=== PATIENT | female | born 1940 | race Caucasian/White ===

== ENCOUNTER 2016-09-07 16:01 | Emergency (ER) | payer MEDICARE ==
[~2016-09-07] VITALS: Ht 154.9 cm; Wt 61.0 kg
[~2016-09-07 16:01] MED LIST: ALBU.5I NEB; ASPI81CH CHEW; CALC1TAB55 PO; CITA10TA4 PO; Cefuroxime PO; DULO1CAP3 PO; FLUT1SPR22; IPRA17I INH; LORA1TAB12 PO; LYRI50CA PO; MIRA33504 PO; MOBI15TA PO; PRIL20CA9 PO; PROBCAP11 PO; RANI150C PO; RISP1TAB2 PO; ZITH250T PO
[2016-09-07 16:09] VITALS: BP 117/76; PULSE 82; RESP 24; TEMP 98.4; O2SAT 94
[2016-09-07] MEDS: RESP: ALBUTEROL 2.5 MG/IPRATROPIUM 0.5 MG NEB (SCH) INH (16:38)
[2016-09-07 16:40] VITALS: O2SAT 95
[2016-09-07] MEDS ORDERED: methylPREDNISolone SOD SUCC 125 MG/2 ML VIAL IVP ONE (16:45)
[2016-09-07] MEDS ORDERED: SODIUM CHLORIDE 0.9% FLUSH 10 ML FLUSH IVF PRN (16:45)
[2016-09-07 17:00] VITALS: O2SAT 93
[2016-09-07 18:15] VITALS: BP 125/73; PULSE 77; RESP 18; O2SAT 94
[2016-09-07 18:21] LABS: AUTOMATED NEUTROPHIL # 1.5 TH/MM3 (1.8-7.7); BASOPHIL % 0.6 % (0.0-2.0); EOSINOPHIL # 0.1 TH/MM3 (0-0.4); EOSINOPHIL % 2.6 % (0.0-4.0); HEMATOCRIT 40.1 % (35.0-46.0); HEMO FLAGS DIFF FINAL; LYMPH % 32.3 % (9.0-44.0); MEAN CELL VOLUME 93.6 FL (80.0-100.0); MEAN CORPUSCULAR HEMOGLOBIN 30.6 PG (27.0-34.0); MEAN CORPUSCULAR HGB CONC 32.7 % (32.0-36.0); NEUT % 52.5 % (16.0-70.0); PLATELET COUNT 174 TH/MM3 (150-450); RED BLOOD COUNT 4.28 MIL/MM3 (4.00-5.30); RED CELL DISTRIBUTION WIDTH 13.2 % (11.6-17.2)
[2016-09-07 18:33] LABS: CHLORIDE 108 MEQ/L (98-107); POTASSIUM 4.5 MEQ/L (3.5-5.1); SODIUM (NA) 142 MEQ/L (136-145)
[2016-09-07 18:37] LABS: APTT (PATIENT) 26.3 SEC (24.3-30.1); PROTHROMBIN TIME - PATIENT 10.9 SEC (9.8-11.6)
[2016-09-07 18:38] LABS: ANION GAP 8 MEQ/L (5-15); BICARBONATE 26.4 MEQ/L (21.0-32.0)
[2016-09-07 18:39] LABS: BLOOD UREA NITROGEN 16 MG/DL (7-18)
[2016-09-07 18:41] LABS: ALT (GPT) 24 U/L (10-53)
[2016-09-07 18:42] LABS: AST (GOT) 19 U/L (15-37); GLOMERULAR FILTRATION RATE 63 ML/MIN (>89)
[2016-09-07 18:43] LABS: TOTAL BILIRUBIN ADULT 0.3 MG/DL (0.2-1.0)
[2016-09-07 18:44] LABS: ALKALINE PHOSPHATASE 58 U/L (45-117)
[2016-09-07 19:00] VITALS: BP 115/93; PULSE 84; RESP 22; O2SAT 96
[2016-09-07] MEDS ORDERED: predniSONE 50 MG TAB PO ONE (19:00)
--- NOTE | 2016-09-07 19:08 | RADHPO ---
EXAM DATE/TIME: 09/07/2016 18:02 [facility] COMPARISON: CHEST PA & LAT, April 24, 2016, 10:01. INDICATIONS : Congestion and short of breath for one week. MEDICAL HISTORY : Hypercholesterolemia. Carcinoma, breast. Myocardial infarction. Congestive heart failure. SURGICAL HISTORY : Mastectomy, right. Cardiac catheterization. ENCOUNTER: Initial ACUITY: 1 week PAIN SCORE: 0/10 LOCATION: Bilateral chest FINDINGS: There is minimal basilar atelectasis or fibrotic change. Heart size mildly enlarged a tortuous aorta. No effusion or pneumothorax. Severe kyphosis with severe compression deformity in the midthoracic sp ine and multiple additional mild compression deformities. CONCLUSION: 1. Minimal basal atelectasis. Tortuous aorta. Mild cardiomegaly. Severe thoracic kyphosis with severe compression deformity in the mid thoracic spine slightly progressed since April 2016. Dell Garber MD on September 07, 2016 at 19:04 Board Certified Radiologist. This report was verified electronically.
[2016-09-07] MEDS ORDERED: PRED50 PO (19:23)
--- NOTE | 2016-09-07 19:24 | PD ---
HPI Chief Complaint: Respiratory Symptoms Time Seen by Provider: 16:18 Travel History International Travel<30 days: No Contact w/Intl Traveler<30days: No Traveled to known affect area: No History of Present Illness HPI Patient is a 76-year-old female who comes in due to shortness of breath. She has a history of lung disease and uses albuterol routinely. Per her home health aide, she seemed to be breathing harder today. She was seen at an urgent care and was prescribed azithromycin, which she finished today. She has not had any fevers at home. She does report a cough. She says the albuterol at home makes her feel better while she is using it. She denies any chest pain. PFSH Past Medical History Hx Anticoagulant Therapy: No Anemia: Yes Arthritis: Yes (OA) Asthma: No Blood Disorders: No Anxiety: Yes Depression: Yes Heart Rhythm Problems: No Cancer: Yes (right BREAST) Cardiac Catheterization: Yes Cardiovascular Problems: Yes High Cholesterol: Yes Chemotherapy: No Chest Pain: Yes Congestive Heart Failure: Yes COPD: No Cerebrovascular Accident: Yes (CVA) Diabetes: No Diminished Hearing: Yes Endocrine: Yes (CHRONIC PANCREATITIS) Gastrointestinal Disorders: Yes (CHR. CONSTIPATION, GERD- ) GERD: Yes Genitourinary: Yes Headaches: Yes Hiatal Hernia: Yes Hypertension: No Immune Disorder: No Implanted Vascular Access Dvce: Yes (REMOVED) Kidney Stones: No Medical other: Yes (ANEMIA, ESOPH. STRICTURE) Musculoskeletal: Yes Neurologic: Yes Psychiatric: Yes Reproductive: No Respiratory: No Immunizations Current: Yes (HEPATITIS AND SHINGLES VACC) Myocardial Infarction: Yes Pancreatitis: Yes (chronic RT insufficiency) Radiation Therapy: No Seizures: Yes (long time ago, 25 or 30 years ago) Sleep Apnea: Yes Ulcer: No Influenza Vaccination: Yes ?: Not Menopausal: Yes : 1 Para: 1 Past Surgical History Abdominal Surgery: Yes (PARTIAL GASTRECTOMY, EXP LAP) AICD: No Appendectomy: Yes Arteriovenous Shunt: No Body Medical Devices: infusor PORT - REMOVED DUE TO INFECTION Cholecystectomy: Yes Ear Surgery: No Endocrine Surgery: No Eye Surgery: Yes (FAIZAN. CATARACT EXTRACT.) Gynecologic Surgery: Yes (OVARIAN SURGERY (PARTIAL OOPHERECTOMY), MASTECTOMY) Hysterectomy: Yes (PARTIAL OOPHERECTOMY) Insulin Pump: No Joint Replacement: Yes (pins in ankle due to bad breaks, left leg dante, broke hip) Mastectomy: Yes (RIGHT BREAST) Neurologic Surgery: Yes ( ) Oral Surgery: Yes (T & A) Tonsillectomy: Yes Social History Alcohol Use: No Tobacco Use: No Substance Use: No Allergies-Medications (Allergen,Severity, Reaction): Coded Allergies: Sulfa (Verified Allergy, Severe, Rash, 09/07/16) Aspirin (Verified Adverse Reaction, Intermediate, Nausea/Vomiting, 09/07/16) PATIENT STATES SHE GETS AN UPSET STOMACH BUT TOLERATES 81MG ASPIRIN DAILY. 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 VRE PCR screens negative 04/22/16 & 04/24/16 Cleared per Infection Control Reported Meds & Prescriptions Reported Meds & Active Scripts Active [Cefuroxime] 500 MG Tab 500 Mg PO BID Reported Probiotic (Probiotic Product) 1 Cap Cap 1 Cap PO DAILY Risperidone 1 Mg Tab 1 Mg PO HS Ranitidine (Ranitidine HCl) 150 Mg Cap 150 Mg PO DAILY Prilosec (Omeprazole) 20 Mg Cap 20 Mg PO DAILY Miralax Powder (Polyethylene Glycol 3350 Powder) 17 Gm Powd 17 Gm PO DAILY Mix and dissolve one measuring cap-ful (17 grams) in water or juice. Mobic (Meloxicam) 15 Mg Tab 15 Mg PO DAILY Lyrica (Pregabalin) 50 Mg Cap 50 Mg PO BID Lorazepam 1 Mg Tab 1 Mg PO HS Allergy Nasal [place] 24 Ho (Fluticasone Propionate (Nasal)) 50 Mcg/Act Spr 1 [place] NA DAILY Duloxetine DR (Duloxetine HCl) 60 Mg Capdr 60 Mg PO DAILY Calcium 500 +D3 (Calcium Carbonate-Cholecalciferol) 500-600 Mg-Unit Tab 1 Tab PO BID Atrovent HFA 12.9 GM Inh (Ipratropium [place]) 17 Mcg/Act Aer 2 Puff INH Q6HR PRN Albuterol Neb (Albuterol Sulfate) 2.5 Mg/0.5 Ml Neb 2.5 Mg NEB Q4HR NEB PRN Note: The Albuterol Sulfate Inhalation Solution is concentrated and must be diluted. Read complete instructions carefully before using. Citalopram (Citalopram Hydrobromide) 10 Mg Tab 20 Mg PO DAILY Review of Systems Except as stated in HPI: all other systems reviewed are Neg General / Constitutional: No: Fever, Chills HENT: No: Headaches, Lightheadedness Cardiovascular: No: Chest Pain or Discomfort Respiratory: Positive: Cough, Shortness of Breath Gastrointestinal: No: Nausea, Vomiting Musculoskeletal: No: Myalgias Skin: No Rash, No Change in Pigmentation Neurologic: No: Weakness, Dizziness Physical Exam Narrative GENERAL: Awake and alert, in no acute distress. SKIN: Focused skin assessment warm/dry. HEAD: Atraumatic. Normocephalic. EYES: Pupils equal and round. No scleral icterus. ENT:Mucous membranes pink and moist. NECK: Trachea midline. No JVD. CARDIOVASCULAR: Regular rate and rhythm. No murmur appreciated. RESPIRATORY: No accessory muscle use. Clear to auscultation. Breath sounds equal bilaterally. GASTROINTESTINAL: Abdomen soft, non-tender, nondistended. MUSCULOSKELETAL: No obvious deformities. No clubbing. No cyanosis. No edema. NEUROLOGICAL: Awake and alert. No obvious cranial nerve deficits. Motor grossly within normal limits. Normal speech. PSYCHIATRIC: Appropriate mood and affect; insight and judgment normal. Data Data Last Documented VS Vital Signs Date Time Temp Pulse Resp B/P Pulse Ox O2 Delivery O2 Flow Rate FiO2 09/07/16 19:00 84 22 115/93 96 Room Air 09/07/16 16:40 21 09/07/16 16:09 98.4 Orders Complete Blood Count With Diff (09/07/16 16:31) Comprehensive Metabolic Panel (09/07/16 16:31) B-Type Natriuretic Peptide (09/07/16 16:31) Act Partial Throm Time (Ptt) (09/07/16 16:31) Prothrombin Time / Inr (Pt) (09/07/16 16:31) Troponin I (09/07/16 16:31) Iv Access Insert/Monitor (09/07/16 16:31) Electrocardiogram (09/07/16 16:31) Ecg Monitoring (09/07/16 16:31) Oximetry (09/07/16 16:31) Oxygen Administration (09/07/16 16:31) Chest, Pa & Lat (09/07/16 16:31) Sodium Chloride 0.9% Flush (Ns Flush) (09/07/16 16:45) Methylprednisolone So Succ Inj (Solumedr (09/07/16 16:45) Albuterol-Ipratropium Neb (Duoneb Neb) (09/07/16 16:45) Prednisone (Deltasone) (09/07/16 19:00) Labs Laboratory Tests Test 09/07/16 18:00 White Blood Count 3.0 TH/MM3 Red Blood Count 4.28 MIL/MM3 Hemoglobin 13.1 GM/DL Hematocrit 40.1 % Mean Corpuscular Volume 93.6 FL Mean Corpuscular Hemoglobin 30.6 PG Mean Corpuscular Hemoglobin 32.7 % Concent Red Cell Distribution Width 13.2 % Platelet Count 174 TH/MM3 Mean Platelet Volume 8.1 FL Neutrophils (%) (Auto) 52.5 % Lymphocytes (%) (Auto) 32.3 % Monocytes (%) (Auto) 12.0 % Eosinophils (%) (Auto) 2.6 % Basophils (%) (Auto) 0.6 % Neutrophils # (Auto) 1.5 TH/MM3 Lymphocytes # (Auto) 1.0 TH/MM3 Monocytes # (Auto) 0.4 TH/MM3 Eosinophils # (Auto) 0.1 TH/MM3 Basophils # (Auto) 0.0 TH/MM3 CBC Comment DIFF FINAL Differential Comment Prothrombin Time 10.9 SEC Prothromb Time International 1.0 RATIO Ratio Activated Partial 26.3 SEC Thromboplast Time Sodium Level 142 MEQ/L Potassium Level 4.5 MEQ/L Chloride Level 108 MEQ/L Carbon Dioxide Level 26.4 MEQ/L Anion Gap 8 MEQ/L Blood Urea Nitrogen 16 MG/DL Creatinine 0.87 MG/DL Estimat Glomerular Filtration 63 ML/MIN Rate Random Glucose 95 MG/DL Calcium Level 8.7 MG/DL Total Bilirubin 0.3 MG/DL Aspartate Amino Transf 19 U/L (AST/SGOT) Alanine Aminotransferase 24 U/L (ALT/SGPT) Alkaline Phosphatase 58 U/L Troponin I LESS THAN 0.02 NG/ML B-Type Natriuretic Peptide 56 PG/ML Total Protein 6.6 GM/DL Albumin 3.6 GM/DL MDM Medical Decision Making Medical Screen Exam Complete: Yes Emergency Medical Condition: Yes Medical Record Reviewed: Yes Differential Diagnosis Pneumonia versus COPD exacerbation versus bronchitis Narrative Course Patient is a 76-year-old female comes in due to shortness of breath. Exam shows no acute abnormalities. She is speaking in full sentences, oxygen sat is within normal limits. Labs sent show no acute abnormalities. Chest x-ray shows chronic changes, no acute signs of pneumonia. Patient states she's been having a lot of congestion, she feels dripping in the back of her throat. She has been taking Mucinex, which she says helps. She does feel better after DuoNeb treatments. Given prednisone. We'll discharge with prescription for prednisone to start tomorrow. Advised follow-up with her doctor. Advised to return to the ED as needed for any worsening symptoms. Patient is asking to go home and is comfortable with this plan at this time. She has help at home and to come back if she needs to. Diagnosis Primary Impression: SOB (shortness of breath) Patient Instructions: Dyspnea (ED), General Instructions Additional Instructions: Follow up with your doctor. Take the steroids starting tomorrow. you can continue Mucinex. Return to the ED as needed for any worsening symptoms. Scripts Prednisone 50 Mg Tab50 Mg PO DAILY 4 Days Ref 0 Prov:Inés Grimes MD 09/07/16 Disposition: 01 DISCHARGE HOME Condition: Stable Inés Grimes MD September 07, 2016 19:23
--- NOTE | 2016-09-07 21:47 | EKG ---
Date Performed: 09/07/2016 Time Performed: 16:28:06 PTAGE: 76 years EKG: Sinus rhythm with borderline 1st degree A-V block. Left axis deviation RBBB Extensive infarct - age undetermined Low QRS voltages in precordial leads Abnormal ECG PREVIOUS TRACING : 02/28/2016 12.21 DOCTOR: Luis Chapman Interpretating Date/Time 09/07/2016 21:45:10
== END 2016-09-07 19:57 | disposition home or self-care (01) ==
LOC: PHED 16:01
DX: R06.02 Shortness of breath (principal); E78.00 Pure hypercholesterolemia, unspecified; F41.8 Other specified anxiety disorders; D64.9 Anemia, unspecified; K86.1 Other chronic pancreatitis; I25.2 Old myocardial infarction; Z90.11 Acquired absence of right breast and nipple
CPT/HCPCS: 71020; 80053; 83880; 84484; 85025; 85610; 85730; 93005; 94640; 94664; 99285; J7512

== ENCOUNTER 2016-09-12 16:36 | Emergency (ER) | payer MEDICARE ==
[~2016-09-12] VITALS: Ht 154.9 cm; Wt 59.0 kg
[~2016-09-12 16:36] MED LIST changes: -ASPI81CH CHEW; +PRED50 PO; -ZITH250T PO
[2016-09-12 16:37] VITALS: BP 128/67; PULSE 80; RESP 24; TEMP 98.5; O2SAT 93
--- NOTE | 2016-09-12 17:30 | PD ---
Physical Exam Date Seen by Provider: September 12, 2016 Time Seen by Provider: 17:26 Narrative Pt sent by Dr. Cronin to have CT scan of lower back. Pt has severe lower back pain. Pt fell on Friday, the pain started after that. Pt has scoliosis and hx of compression fractures. VSS, awaiting bed placement. Data Data Last Documented VS Vital Signs Date Time Temp Pulse Resp B/P Pulse Ox O2 Delivery O2 Flow Rate FiO2 09/12/16 16:37 98.5 80 24 128/67 93 Room Air MDM Supervised Visit with MICKEY: Amara Roberson September 12, 2016 17:30
--- NOTE | 2016-09-12 19:20 | RADRPT ---
EXAM DATE/TIME: 09/12/2016 18:42 [facility] COMPARISON: MRI LUMBAR SPINE W/O CONTRAST, November 17, 2014, 18:10. INDICATIONS : Trauma, fall. RADIATION DOSE: 18.67 CTDIvol (mGy) MEDICAL HISTORY : Osteoporosis. SURGICAL HISTORY : Lumbar disc surgery. ENCOUNTER: Initial ACUITY: 4 - 6 days PAIN SCALE: 9/10 LOCATION: Paraspinal TECHNIQUE: Volumetric scanning of the lumbar spine was performed. Multiplanar reconstructions in the sagittal, coronal and oblique axial planes were performed. Using automated exposure control and adjustment of the mA and/or kV according to patient size, radiation dose was kept as low as reasonably achievable t o obtain optimal diagnostic quality images. FINDINGS: There is moderate left convex lumbar scoliosis. There is no significant spondylolisthesis. There are severe compressive injuries at L1 and L2 which are old, unchanged from previous MRI. The other verteb ra are intact. There is sclerotic change involving the sacrum with appearance suggesting possible ins ufficiency fracture. The sclerotic change would suggest that this is also nonacute. There is no evide nce of paraspinal mass or hematoma. There is no significant bony canal or foraminal compromise. There are mild degenerative changes present throughout. Stimulator or infusion catheter of some type a sen se to the thoracic levels. CONCLUSION: Old osteoporotic compression fractures at L1 and L2 as well as likely sacral insufficiency fracture. No definite acute bony findings. Ashvin Morales MD on September 12, 2016 at 19:12 Board Certified Radiologist. This report was verified electronically.
--- NOTE | 2016-09-12 19:34 | PD ---
HPI Chief Complaint: Back/ Neck Pain or Injury Time Seen by Provider: 18:48 Travel History International Travel<30 days: No Contact w/Intl Traveler<30days: No Traveled to known affect area: No History of Present Illness HPI Patient is a 76-year-old female who presents to emergency room for evaluation of low back pain. Patient was sent to the emergency room by her primary care doctor, Dr. Lyons for a CT of her lumbar spine. 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 Patient reports that she has a bruise on her lower buttocks, reports that she continues to have low back pain. She was sent to the emergency room by Dr. Lyons for ct of her lumbar spine. Patient has been ambulating with her walker, denies saddle anesthesia. No other c/o. Denies any trauma to her head/neck. Denies loc during fall. PFSH Past Medical History Hx Anticoagulant Therapy: No Anemia: Yes Arthritis: Yes (OA) Asthma: No Blood Disorders: No Anxiety: Yes Depression: Yes Heart Rhythm Problems: No Cancer: Yes (right BREAST) Cardiac Catheterization: Yes Cardiovascular Problems: Yes High Cholesterol: Yes Chemotherapy: No Chest Pain: Yes Congestive Heart Failure: Yes COPD: No Cerebrovascular Accident: Yes (CVA) Diabetes: No Diminished Hearing: Yes Endocrine: Yes (CHRONIC PANCREATITIS) Gastrointestinal Disorders: Yes (CHR. CONSTIPATION, GERD- ) GERD: Yes Genitourinary: Yes Headaches: Yes Hiatal Hernia: Yes Hypertension: No Immune Disorder: No Implanted Vascular Access Dvce: Yes (REMOVED) Kidney Stones: No Musculoskeletal: Yes Neurologic: Yes Psychiatric: Yes Reproductive: No Respiratory: No Immunizations Current: Yes (HEPATITIS AND SHINGLES VACC) Myocardial Infarction: Yes Pancreatitis: Yes (chronic RT insufficiency) Radiation Therapy: No Seizures: Yes (long time ago, 25 or 30 years ago) Sleep Apnea: Yes Ulcer: No Menopausal: Yes : 1 Para: 1 Past Surgical History Abdominal Surgery: Yes (PARTIAL GASTRECTOMY, EXP LAP) AICD: No Appendectomy: Yes Arteriovenous Shunt: No Body Medical Devices: infusor PORT - REMOVED DUE TO INFECTION Cholecystectomy: Yes Ear Surgery: No Endocrine Surgery: No Eye Surgery: Yes (FAIZAN. CATARACT EXTRACT.) Gynecologic Surgery: Yes (OVARIAN SURGERY (PARTIAL OOPHERECTOMY), MASTECTOMY) Hysterectomy: Yes (PARTIAL OOPHERECTOMY) Insulin Pump: No Joint Replacement: Yes (pins in ankle due to bad breaks, left leg dante, broke hip) Mastectomy: Yes (RIGHT BREAST) Neurologic Surgery: Yes ( ) Oral Surgery: Yes (T & A) Tonsillectomy: Yes Social History Alcohol Use: No Tobacco Use: No Substance Use: No Allergies-Medications (Allergen,Severity, Reaction): Coded Allergies: Sulfa (Verified Allergy, Severe, Rash, 09/07/16) Aspirin (Verified Adverse Reaction, Intermediate, Nausea/Vomiting, 09/07/16) PATIENT STATES SHE GETS AN UPSET STOMACH BUT TOLERATES 81MG ASPIRIN DAILY. 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 VRE PCR screens negative 04/22/16 & 04/24/16 Cleared per Infection Control Reported Meds & Prescriptions Reported Meds & Active Scripts Active Lidocaine Patch 12 HR (Lidocaine) 5 % Patch 1 Patch TOPICAL DAILY Remove patch after 12 hours Prednisone 50 Mg Tab 50 Mg PO DAILY 4 Days [Cefuroxime] 500 MG Tab 500 Mg PO BID Reported Probiotic (Probiotic Product) 1 Cap Cap 1 Cap PO DAILY Risperidone 1 Mg Tab 1 Mg PO HS Ranitidine (Ranitidine HCl) 150 Mg Cap 150 Mg PO DAILY Prilosec (Omeprazole) 20 Mg Cap 20 Mg PO DAILY Miralax Powder (Polyethylene Glycol 3350 Powder) 17 Gm Powd 17 Gm PO DAILY Mix and dissolve one measuring cap-ful (17 grams) in water or juice. Mobic (Meloxicam) 15 Mg Tab 15 Mg PO DAILY Lyrica (Pregabalin) 50 Mg Cap 50 Mg PO BID Lorazepam 1 Mg Tab 1 Mg PO HS Allergy Nasal [place] 24 Ho (Fluticasone Propionate (Nasal)) 50 Mcg/Act Spr 1 [place] NA DAILY Duloxetine DR (Duloxetine HCl) 60 Mg Capdr 60 Mg PO DAILY Calcium 500 +D3 (Calcium Carbonate-Cholecalciferol) 500-600 Mg-Unit Tab 1 Tab PO BID Atrovent HFA 12.9 GM Inh (Ipratropium [place]) 17 Mcg/Act Aer 2 Puff INH Q6HR PRN Albuterol Neb (Albuterol Sulfate) 2.5 Mg/0.5 Ml Neb 2.5 Mg NEB Q4HR NEB PRN Note: The Albuterol Sulfate Inhalation Solution is concentrated and must be diluted. Read complete instructions carefully before using. Citalopram (Citalopram Hydrobromide) 10 Mg Tab 20 Mg PO DAILY Review of Systems General / Constitutional: No: Fever Eyes: No: Visual changes HENT: No: Headaches Cardiovascular: No: Chest Pain or Discomfort Respiratory: No: Shortness of Breath Gastrointestinal: No: Abdominal Pain Genitourinary: No: Dysuria Musculoskeletal: Positive: Pain (low back pain) Skin: No Rash Neurologic: No: Weakness Psychiatric: No: Depression Endocrine: No: Polydipsia Hematologic/Lymphatic: No: Easy Bruising Physical Exam Narrative GENERAL: mild distress SKIN: Focused skin assessment warm/dry. HEAD: Atraumatic. Normocephalic. EYES: Pupils equal and round. No scleral icterus. No injection or drainage. ENT: No nasal bleeding or discharge. Mucous membranes pink and moist. NECK: Trachea midline. No JVD. CARDIOVASCULAR: Regular rate and rhythm. No murmur appreciated. RESPIRATORY: No accessory muscle use. Clear to auscultation. Breath sounds equal bilaterally. GASTROINTESTINAL: Abdomen soft, non-tender, nondistended. Hepatic and splenic margins not palpable. MUSCULOSKELETAL: No obvious deformities. No clubbing. No cyanosis. No edema. patient with bruise to lower back - patient with lumbar midline and paraspinal tenderness NEUROLOGICAL: Awake and alert. No obvious cranial nerve deficits. Motor grossly within normal limits. Normal speech. PSYCHIATRIC: Appropriate mood and affect; insight and judgment normal. Data Data Last Documented VS Vital Signs Date Time Temp Pulse Resp B/P Pulse Ox O2 Delivery O2 Flow Rate FiO2 09/12/16 16:37 98.5 80 24 128/[address] Lumb Spine W/O Contrast (09/12/16 ) Lidocaine 5% Patch.12 Hr (Lidoderm 5% Pa (09/12/16 20:00) MDM Medical Decision Making Medical Screen Exam Complete: Yes Emergency Medical Condition: Yes Interpretation(s) Vital Signs Date Time Temp Pulse Resp B/P Pulse Ox O2 Delivery O2 Flow Rate FiO2 09/12/16 16:37 98.5 80 24 128/67 93 Room Air Differential Diagnosis Lumbar fracture, lumbar sprain Narrative Course Patient is a 76-year-old female who presents to emergency room for CT of her lumbar spine to rule out fracture. Patient had a mechanical fall on Friday and landed on her buttocks. Patient reports that she is a bruise to her buttocks, reports pain to her low back. She did follow up with her primary care doctor, who sent her to the ER for ct of her low back patient is using her walker on evaluation. Last Impressions Lumbar Spine CT 09/12/16 0000 Signed Impressions: Service Date/Time: September 18:42 - CONCLUSION: Old osteoporotic compression fractures at L1 and L2 as well as likely sacral insufficiency fracture. No definite acute bony findings. Ashvin Morales MD Copy of CT report given to patient. She will follow up with Dr. Browning and will have her return to ER as needed. Diagnosis Primary Impression: Lumbar pain Qualified Code: M54.5 - Acute low back pain without sciatica, unspecified back pain laterality Patient Instructions: General Instructions Additional Instructions: Please bring your CT report to your doctor's office for follow up on all studies from today Return to ER as needed Med/Other Pt SpecificInfo: Prescription(s) given Scripts Lidocaine Patch 12 HR 5 % Patch1 Patch TOPICAL DAILY #1 BOX Ref 1 Remove patch after 12 hours Prov:Alla Morgan DO 09/12/16 Disposition: 01 DISCHARGE HOME Condition: Stable Alla Morgan DO September 12, 2016 19:34
[2016-09-12] MEDS ORDERED: LIDO1PAD52 TOPICAL (19:44)
[2016-09-12] MEDS ORDERED: LIDOCAINE HCL 5% PATCH T-DERMAL ONE (20:00)
== END 2016-09-12 20:58 | disposition home or self-care (01) ==
LOC: NEPD 16:36
DX: S30.0XXA Contusion of lower back and pelvis, initial encounter (principal); M54.5 Low back pain; E78.00 Pure hypercholesterolemia, unspecified; I50.9 Heart failure, unspecified; K86.1 Other chronic pancreatitis; I25.2 Old myocardial infarction; D64.9 Anemia, unspecified; F41.8 Other specified anxiety disorders; W18.39XA Other fall on same level, initial encounter; Y93.89 Activity, other specified; Y92.89 Other specified places as the place of occurrence of the external cause; Y99.8 Other external cause status
CPT/HCPCS: 72131

== ENCOUNTER 2016-11-08 15:52 | Emergency (ER) | payer MEDICARE ==
[~2016-11-08] VITALS: Ht 154.9 cm; Wt 56.0 kg
[~2016-11-08 15:52] MED LIST changes: +LIDO1PAD52 TOPICAL
[2016-11-08 15:54] VITALS: BP 104/58; PULSE 82; RESP 24; TEMP 97.7; O2SAT 97
--- NOTE | 2016-11-08 16:04 | PD ---
Physical Exam Time Seen by Provider: 16:01 Narrative 76to F sent by Dr. Lynne to r/o DVT to LLE. Patient seen in triage. VS reviewed. Patient awaiting bed placement. Data Data Last Documented VS Vital Signs Date Time Temp Pulse Resp B/P Pulse Ox O2 Delivery O2 Flow Rate FiO2 11/08/16 15:54 97.7 82 24 104/58 97 Room Air [facility] Supervised Visit with MICKEY: Dannielle Salazar Nov 08, 2016 16:04
[2016-11-08] MEDS ORDERED: SODIUM CHLORIDE 0.9% FLUSH 10 ML FLUSH IVF PRN (16:30)
[2016-11-08 16:32] VITALS: RESP 18; O2SAT 98
--- NOTE | 2016-11-08 16:42 | PD ---
HPI Chief Complaint: Medical Clearance Time Seen by Provider: 16:10 Travel History International Travel<30 days: No Contact w/Intl Traveler<30days: No Traveled to known affect area: No History of Present Illness HPI 76-year-old female arrives to the ER at the behest of Dr. West. Patient has had swelling in the left lower extremity. It was first noticed this morning. She tried to elevate and ice the leg however no change occurred. She also complains of pain in the ankle chronic in nature as well as pain in the left hip and femur. She has no shortness of breath. Patient has no history of DVT. PFSH Past Medical History Hx Anticoagulant Therapy: No Anemia: Yes Arthritis: Yes (OA) Asthma: No Blood Disorders: No Anxiety: Yes Depression: Yes Heart Rhythm Problems: No Cancer: Yes (right BREAST) Cardiac Catheterization: Yes Cardiovascular Problems: Yes ([place]) High Cholesterol: Yes Chemotherapy: No Chest Pain: Yes Congestive Heart Failure: Yes COPD: No Cerebrovascular Accident: Yes Diabetes: No Diminished Hearing: Yes Endocrine: Yes (CHRONIC PANCREATITIS) Gastrointestinal Disorders: Yes (CHR. CONSTIPATION, GERD- ) GERD: Yes Genitourinary: Yes Headaches: Yes Hiatal Hernia: Yes Hypertension: No Immune Disorder: No Implanted Vascular Access Dvce: Yes (REMOVED) Kidney Stones: No Medical other: Yes (ANEMIA, ESOPH. STRICTURE) Musculoskeletal: Yes Neurologic: Yes Psychiatric: Yes Reproductive: No Respiratory: No Immunizations Current: Yes (HEPATITIS AND SHINGLES VACC) Myocardial Infarction: Yes Pancreatitis: Yes (chronic RT insufficiency) Radiation Therapy: No Seizures: Yes (long time ago, 25 or 30 years ago) Sleep Apnea: Yes Ulcer: No Tetanus Vaccination: > 5 Years Influenza Vaccination: Yes Menopausal: Yes : 1 Para: 1 Past Surgical History Abdominal Surgery: Yes (PARTIAL GASTRECTOMY, EXP LAP) AICD: No Appendectomy: Yes Arteriovenous Shunt: No Body Medical Devices: infusor PORT - REMOVED DUE TO INFECTION Cholecystectomy: Yes Ear Surgery: No Endocrine Surgery: No Eye Surgery: Yes (FAIZAN. CATARACT EXTRACT.) Gynecologic Surgery: Yes (OVARIAN SURGERY (PARTIAL OOPHERECTOMY), MASTECTOMY) Hysterectomy: Yes (PARTIAL OOPHERECTOMY) Insulin Pump: No Joint Replacement: Yes (pins in ankle due to bad breaks, left leg dante, broke hip) Mastectomy: Yes (RIGHT BREAST) Neurologic Surgery: Yes ( ) Oral Surgery: Yes (T & A) Tonsillectomy: Yes Social History Alcohol Use: No Tobacco Use: No Substance Use: No Allergies-Medications (Allergen,Severity, Reaction): Coded Allergies: Sulfa (Verified Allergy, Severe, Rash, 11/08/16) Aspirin (Verified Adverse Reaction, Intermediate, Nausea/Vomiting, 11/08/16) PATIENT STATES SHE GETS AN UPSET STOMACH BUT TOLERATES 81MG ASPIRIN DAILY. Caffeine (Verified Adverse Reaction, Mild, NAUSEA, 11/08/16) 01/06/13--RASH Codeine (Verified Adverse Reaction, Mild, EMESIS, 11/08/16) Lactose (Verified Adverse Reaction, Mild, CRAMPS, 11/08/16) Tramadol (Verified Adverse Reaction, Mild, DIZZY, 11/08/16) 01/06/13--DENIES ALLERGY *MDRO Multi-Drug Resistant Organism (Verified Adverse Reaction, Unknown, Cleared, 11/08/16) VRE (urine) - 08/31/06 VRE PCR screens negative 04/22/16 & 04/24/16 Cleared per Infection Control Reported Meds & Prescriptions Reported Meds & Active Scripts Active Lidocaine Patch 12 HR (Lidocaine) 5 % Patch 1 Patch TOPICAL DAILY Remove patch after 12 hours Prednisone 50 Mg Tab 50 Mg PO DAILY 4 Days [Cefuroxime] 500 MG Tab 500 Mg PO BID Reported Probiotic (Probiotic Product) 1 Cap Cap 1 Cap PO DAILY Risperidone 1 Mg Tab 1 Mg PO HS Ranitidine (Ranitidine HCl) 150 Mg Cap 150 Mg PO DAILY Prilosec (Omeprazole) 20 Mg Cap 20 Mg PO DAILY Miralax Powder (Polyethylene Glycol 3350 Powder) 17 Gm Powd 17 Gm PO DAILY Mix and dissolve one measuring cap-ful (17 grams) in water or juice. Mobic (Meloxicam) 15 Mg Tab 15 Mg PO DAILY Lyrica (Pregabalin) 50 Mg Cap 50 Mg PO BID Lorazepam 1 Mg Tab 1 Mg PO HS Allergy Nasal [place] 24 Ho (Fluticasone Propionate (Nasal)) 50 Mcg/Act Spr [address] NA DAILY Duloxetine DR (Duloxetine HCl) 60 Mg Capdr 60 Mg PO DAILY Calcium 500 +D3 (Calcium Carbonate-Cholecalciferol) 500-600 Mg-Unit Tab 1 Tab PO BID Atrovent HFA 12.9 GM Inh (Ipratropium [place]) 17 Mcg/Act Aer 2 Puff INH Q6HR PRN Albuterol Neb (Albuterol Sulfate) 2.5 Mg/0.5 Ml Neb 2.5 Mg NEB Q4HR NEB PRN Note: The Albuterol Sulfate Inhalation Solution is concentrated and must be diluted. Read complete instructions carefully before using. Citalopram (Citalopram Hydrobromide) 10 Mg Tab 20 Mg PO DAILY Review of Systems Except as stated in HPI: all other systems reviewed are Neg Physical Exam Narrative GENERAL: 76-year-old female, no acute distress speaking full sentences SKIN: Focused skin assessment warm/dry. HEAD: Atraumatic. Normocephalic. EYES: Pupils equal and round. No scleral icterus. No injection or drainage. ENT: No nasal bleeding or discharge. Mucous membranes pink and moist. NECK: Trachea midline. No JVD. CARDIOVASCULAR: Regular rate and rhythm. No murmur appreciated. RESPIRATORY: No accessory muscle use. Clear to auscultation. Breath sounds equal bilaterally. GASTROINTESTINAL: Abdomen soft, non-tender, nondistended. Hepatic and splenic margins not palpable. MUSCULOSKELETAL: There is no gross swelling of the left lower extremity or asymmetry. TTP overlying region of L greater trochanter. NEUROLOGICAL: Awake and alert. No obvious cranial nerve deficits. Motor grossly within normal limits. Normal speech. PSYCHIATRIC: Appropriate mood and affect; insight and judgment normal. Data Data Last Documented VS Vital Signs Date Time Temp Pulse Resp B/P Pulse Ox O2 Delivery O2 Flow Rate FiO2 11/08/16 16:32 18 98 Room Air 11/08/16 16:12 75 11/08/16 15:54 97.7 104/58 VS reviewed Orders Complete Blood Count With Diff (11/08/16 16:16) Prothrombin Time / Inr (Pt) (11/08/16 16:16) Act Partial Throm Time (Ptt) (11/08/16 16:16) Hip, Uni(Ap&Lat) W Ap Pelvis (11/08/16 16:16) Iv Access Insert/Monitor (11/08/16 16:16) Oximetry (11/08/16 16:16) Ecg Monitoring (11/08/16 16:16) Sodium Chloride 0.9% Flush (Ns Flush) (11/08/16 16:30) Basic Metabolic Panel (Bmp) (11/08/16 16:16) Us Leg Venous Doppler Bilat (11/08/16 ) MDM Medical Decision Making Medical Screen Exam Complete: Yes Emergency Medical Condition: Yes Medical Record Reviewed: Yes Differential Diagnosis DVT, pubic ramus fracture, migration of femur hardware Narrative Course Work up pending at time of dictation. Oncoming provider will follow up imaging and blood work for appropriate disposition. Garry Craig MD Nov 08, 2016 16:42
[2016-11-08 17:00] LABS: AUTOMATED NEUTROPHIL # 3.5 TH/MM3 (1.8-7.7); BASOPHIL % 0.6 % (0.0-2.0); EOSINOPHIL # 0.1 TH/MM3 (0-0.4); EOSINOPHIL % 2.4 % (0.0-4.0); HEMATOCRIT 41.6 % (35.0-46.0); HEMO FLAGS DIFF FINAL; LYMPH % 23.7 % (9.0-44.0); LYMPHOCYTE # 1.3 TH/MM3 (1.0-4.8); MEAN CELL VOLUME 93.9 FL (80.0-100.0); MEAN CORPUSCULAR HEMOGLOBIN 30.6 PG (27.0-34.0); MEAN CORPUSCULAR HGB CONC 32.6 % (32.0-36.0); MONO % 10.1 % (0.0-8.0); NEUT % 63.2 % (16.0-70.0); PLATELET COUNT 199 TH/MM3 (150-450); RED BLOOD COUNT 4.43 MIL/MM3 (4.00-5.30); RED CELL DISTRIBUTION WIDTH 13.8 % (11.6-17.2); WHITE BLOOD COUNT 5.5 TH/MM3 (4.0-11.0)
[2016-11-08 17:06] LABS: APTT (PATIENT) 26.9 SEC (24.3-30.1); INTERNATIONAL NORMALIZED RATIO 1.1 RATIO; PROTHROMBIN TIME - PATIENT 11.9 SEC (9.8-11.6)
--- NOTE | 2016-11-08 17:22 | RADRPT ---
EXAM DATE/TIME: 11/08/2016 17:00 [facility] COMPARISON: No previous studies available for comparison. INDICATIONS : Left hip pain and swelling, no known injury. MEDICAL HISTORY : Right hip fracture. Left hip fracture. Hypercholesterolemia. Carcinoma, breast. Myocardial infarction .Congestive heart failure. SURGICAL HISTORY : Right hip. Left hip. Mastectomy, right. Cardiac catheterization. ENCOUNTER: Initial ACUITY: 1 week PAIN SCORE: 9/10 LOCATION: Left hip FINDINGS: Examination of the left hip was performed with AP Pelvis. There is multiple fractures involving the l eft ischium and left inferior pubic ramus with callus formation. There is evidence of internal fixati on of the proximal femur. The hardware is grossly intact. No acute fracture or joint dislocation is d emonstrated. There is good alignment of the SI joints and pubic symphysis. CONCLUSION: 1. There are old fractures involving the left ischium and left inferior pubic ramus with callus forma tion. 2. No acute fracture or joint dislocation. Alexis Mchugh MD on November 08, 2016 at 17:18 Board Certified Radiologist. This report was verified electronically.
--- NOTE | 2016-11-08 18:02 | RADRPT ---
EXAM DATE/TIME: 11/08/2016 16:24 [facility] COMPARISON: No previous studies available for comparison. INDICATIONS : Bilateral leg pain. MEDICAL HISTORY : Congestive heart failure. Gastroesophageal reflux disease. Hypercholesterolemia. Cataracts. Cerebrov ascular accident. Syncope. Chest pain. Myocardial infarction. Hernia, hiatal. Carcinoma, breast. SURGICAL HISTORY : Tonsillectomy.Appendectomy. Cholecystectomy.Cardiac catheterization. Chest surgery. Parital gastrec floridalma. Mastectomy. Hysterectomy. Partial oopherectomy. ENCOUNTER: Initial ACUITY: 1 day PAIN SCORE: 4/10 LOCATION: Bilateral legs. TECHNIQUE: Venous ultrasound of the left and right leg was performed from the inguinal ligament to the proximal calf. Real-time, color Doppler and spectral tracing, compression and augmentation techniques were us ed. FINDINGS: RIGHT LEG: There is normal compressibility of the deep venous system from the inguinal region to the proximal ca lf. No echogenic clot is seen in the lumen of the common femoral, femoral, popliteal, and posterior tibial veins. There is a normal response of the venous system to proximal and distal augmentation an d respiration. LEFT LEG: There is normal compressibility of the deep venous system from the inguinal region to the proximal ca lf. No echogenic clot is seen in the lumen of the common femoral, femoral, popliteal, and posterior tibial veins. There is a normal response of the venous system to proximal and distal augmentation an d respiration. CONCLUSION: 1. No sonographic evidence for lower extremity DVT. Luke Calderon MD on November 08, 2016 at 18:00 Board Certified Radiologist. This report was verified electronically.
[2016-11-08 18:05] LABS: BICARBONATE 31.5 MEQ/L (21.0-32.0)
[2016-11-08 18:06] LABS: POTASSIUM 4.8 MEQ/L (3.5-5.1)
--- NOTE | 2016-11-08 19:22 | PD ---
Physical Exam Date Seen by Provider: Nov 08, 2016 Time Seen by Provider: 19:18 Narrative 76-year-old female who came to the emergency room sent by her primary care for a rule out DVT of her lower extremity. Patient was seen by the previous ER physician and case was signed out to me to follow-up on the ultrasound and x- ray report. X-ray shows old healing fracture of the pubic rami. Ultrasound is negative for DVT. I looked at her blood test results and they're within normal limit. I'll discharge her home at this point. Data Data Last Documented VS Vital Signs Date Time Temp Pulse Resp B/P Pulse Ox O2 Delivery O2 Flow Rate FiO2 11/08/16 16:32 18 98 Room Air 11/08/16 16:12 75 11/08/16 15:54 97.7 104/58 Orders Complete Blood Count With Diff (11/08/16 16:16) Prothrombin Time / Inr (Pt) (11/08/16 16:16) Act Partial Throm Time (Ptt) (11/08/16 16:16) Hip, Uni(Ap&Lat) W Ap Pelvis (11/08/16 16:16) Iv Access Insert/Monitor (11/08/16 16:16) Oximetry (11/08/16 16:16) Ecg Monitoring (11/08/16 16:16) Sodium Chloride 0.9% Flush (Ns Flush) (11/08/16 16:30) Basic Metabolic Panel (Bmp) (11/08/16 16:16) Us Leg Venous Doppler Bilat (11/08/16 ) Labs Laboratory Tests Test 11/08/16 16:27 White Blood Count 5.5 TH/MM3 Red Blood Count 4.43 MIL/MM3 Hemoglobin 13.5 GM/DL Hematocrit 41.6 % Mean Corpuscular Volume 93.9 FL Mean Corpuscular Hemoglobin 30.6 PG Mean Corpuscular Hemoglobin 32.6 % Concent Red Cell Distribution Width 13.8 % Platelet Count 199 TH/MM3 Mean Platelet Volume 8.3 FL Neutrophils (%) (Auto) 63.2 % Lymphocytes (%) (Auto) 23.7 % Monocytes (%) (Auto) 10.1 % Eosinophils (%) (Auto) 2.4 % Basophils (%) (Auto) 0.6 % Neutrophils # (Auto) 3.5 TH/MM3 Lymphocytes # (Auto) 1.3 TH/MM3 Monocytes # (Auto) 0.6 TH/MM3 Eosinophils # (Auto) 0.1 TH/MM3 Basophils # (Auto) 0.0 TH/MM3 CBC Comment DIFF FINAL Differential Comment Prothrombin Time 11.9 SEC Prothromb Time International 1.1 RATIO Ratio Activated Partial 26.9 SEC Thromboplast Time Sodium Level 137 MEQ/L Potassium Level 4.8 MEQ/L Chloride Level 100 MEQ/L Carbon Dioxide Level 31.5 MEQ/L Anion Gap 6 MEQ/L Blood Urea Nitrogen 11 MG/DL Creatinine 0.94 MG/DL Estimat Glomerular Filtration 58 ML/MIN Rate Random Glucose 82 MG/DL Calcium Level 9.5 MG/DL MDM Supervised Visit with MICKEY: No Diagnosis Primary Impression: Leg swelling Additional Impression: old pelvic fracture Referrals: Primary Care Physician Additional Instruction: Please keep the leg elevated above the heart level to keep the swelling down. Follow-up with your primary care as needed. In to the ER if the condition worsens or any other new concerns. Med/Other Pt SpecificInfo: No Change to Meds Disposition: 01 DISCHARGE HOME Condition: Stable Kevin Cassidy MD Nov 08, 2016 19:22 Kevin Cassidy MD Nov 08, 2016 19:22
== END 2016-11-08 19:56 | disposition home or self-care (01) ==
LOC: NEPD 15:52
DX: M79.89 Other specified soft tissue disorders (principal); D64.9 Anemia, unspecified; M19.90 Unspecified osteoarthritis, unspecified site; F41.9 Anxiety disorder, unspecified; F32.9 Major depressive disorder, single episode, unspecified; E78.00 Pure hypercholesterolemia, unspecified; I50.9 Heart failure, unspecified; K86.1 Other chronic pancreatitis; K21.9 Gastro-esophageal reflux disease without esophagitis
CPT/HCPCS: 73502; 80048; 85025; 85610; 85730; 93970; 99285

== ENCOUNTER 2016-12-28 16:46 | Emergency (ER) | payer MEDICARE ==
[~2016-12-28] VITALS: Ht 157.5 cm; Wt 60.4 kg
[2016-12-28 16:56] VITALS: BP 111/58; PULSE 61; RESP 18; TEMP 98.1; O2SAT 97
[2016-12-28] MEDS ORDERED: BUTATAB6 PO (17:12)
[2016-12-28] MEDS ORDERED: OMEP20TA PO (17:12)
[2016-12-28] MEDS ORDERED: ACYC5OIN4 TOPICAL (17:12)
[2016-12-28] MEDS ORDERED: FLAX10002 (17:12)
[2016-12-28] MEDS ORDERED: ASPI81CH CHEW (17:12)
[2016-12-28] MEDS ORDERED: FLUT50SP EACH NARE (17:12)
[2016-12-28] MEDS ORDERED: SODIUM CHLORIDE 0.9% FLUSH 10 ML FLUSH IV FLUSH PRN (17:15)
[2016-12-28] MEDS ORDERED: METOCLOPRAMIDE HCL 10 MG/2 ML VIAL IV PUSH ONE (17:15)
--- NOTE | 2016-12-28 17:18 | PD ---
HPI Chief Complaint: Pain: Acute or Chronic Time Seen by Provider: 17:06 Travel History International Travel<30 days: No Contact w/Intl Traveler<30days: No Traveled to known affect area: No History of Present Illness HPI 76-year-old female here with her caregivers for evaluation of right leg pain, right-sided headache, and dizziness. Symptoms started today. Patient has history of headaches and was given a dose of Fioricet at around 10:30 today. She rates her headache is mild and throbbing. She also has had history of episodes of dizziness. She feels as though she is spinning. Right leg pain also started today. No trauma. Pain described as throbbing and is located in her calf. She reports history of DVT, however is no longer on anticoagulation. No fevers or recent illness. No abdominal pain. She did have 3 loose bowel movements today. No vomiting. PFSH Past Medical History Hx Anticoagulant Therapy: No Anemia: Yes Arthritis: Yes (OA) Asthma: No Blood Disorders: No Anxiety: Yes Depression: Yes Heart Rhythm Problems: No Cancer: Yes (right BREAST) Cardiac Catheterization: Yes Cardiovascular Problems: Yes ([place]) High Cholesterol: Yes Chemotherapy: No Chest Pain: Yes Congestive Heart Failure: Yes COPD: No Cerebrovascular Accident: Yes Diabetes: No Diminished Hearing: Yes Endocrine: Yes (CHRONIC PANCREATITIS) Gastrointestinal Disorders: Yes (CHR. CONSTIPATION, GERD- ) GERD: Yes Genitourinary: Yes Headaches: Yes Hiatal Hernia: Yes Hypertension: No Immune Disorder: No Implanted Vascular Access Dvce: Yes (REMOVED) Kidney Stones: No Medical other: Yes (ANEMIA, ESOPH. STRICTURE) Musculoskeletal: Yes Neurologic: Yes Psychiatric: Yes Reproductive: No Respiratory: No Immunizations Current: Yes (HEPATITIS AND SHINGLES VACC) Myocardial Infarction: Yes Pancreatitis: Yes (chronic RT insufficiency) Radiation Therapy: No Seizures: Yes (long time ago, 25 or 30 years ago) Sleep Apnea: Yes Ulcer: No ?: Not Menopausal: Yes : 1 Para: 1 Past Surgical History Abdominal Surgery: Yes (PARTIAL GASTRECTOMY, EXP LAP) AICD: No Appendectomy: Yes Arteriovenous Shunt: No Body Medical Devices: infusor PORT - REMOVED DUE TO INFECTION Cholecystectomy: Yes Ear Surgery: No Endocrine Surgery: No Eye Surgery: Yes (FAIZAN. CATARACT EXTRACT.) Gynecologic Surgery: Yes (OVARIAN SURGERY (PARTIAL OOPHERECTOMY), MASTECTOMY) Hysterectomy: Yes (PARTIAL OOPHERECTOMY) Insulin Pump: No Joint Replacement: Yes (pins in ankle due to bad breaks, left leg dante, broke hip) Mastectomy: Yes (RIGHT BREAST) Neurologic Surgery: Yes ( ) Oral Surgery: Yes (T & A) Tonsillectomy: Yes Social History Alcohol Use: No Tobacco Use: No Substance Use: No Allergies-Medications (Allergen,Severity, Reaction): Coded Allergies: Sulfa (Sulfonamide Antibiotics) (Unverified Allergy, Severe, Rash, 12/28/16 ) aspirin (Unverified Adverse Reaction, Intermediate, Nausea/Vomiting, ) PATIENT STATES SHE GETS AN UPSET STOMACH BUT TOLERATES 81MG ASPIRIN DAILY. caffeine (Unverified Adverse Reaction, Mild, NAUSEA, 12/28/16) 01/06/13--RASH codeine (Unverified Adverse Reaction, Mild, EMESIS, 12/28/16) lactose (Unverified Adverse Reaction, Mild, CRAMPS, 12/28/16) tramadol (Unverified Adverse Reaction, Mild, DIZZY, 12/28/16) 01/06/13--DENIES ALLERGY *MDRO Multi-Drug Resistant Organism (Verified Adverse Reaction, Unknown, Cleared, 12/28/16) VRE (urine) - 08/31/06 VRE PCR screens negative 04/22/16 & 04/24/16 Cleared per Infection Control Reported Meds & Prescriptions Reported Meds & Active Scripts Active Reported Omeprazole 20 Mg Tab 20 Mg PO DAILY Fluticasone Nasal [place] 50 Mcg/Act Naspr 50 Mcg EACH NARE BID 50 mcg/spray Flax Seed Oil 1000 mg (Flaxseed (Linseed)) 1 Cap Cap Etlzvkdtem-Desqildpdphqx-Undggjsd 50-325-40 Mg Tab 1 Tab PO Q4H PRN Do not exceed 6 tablets/day. Aspirin 81 Mg Chew 81 Mg CHEW DAILY Acyclovir Topical (Acyclovir) 5% Oint 1 Applic TOPICAL QID Risperidone 1 Mg Tab 1 Mg PO HS Mobic (Meloxicam) 15 Mg Tab 15 Mg PO DAILY Lyrica (Pregabalin) 50 Mg Cap 50 Mg PO BID Lorazepam 1 Mg Tab 1 Mg PO HS Duloxetine DR (Duloxetine HCl) 60 Mg Capdr 60 Mg PO DAILY Calcium 500 +D3 (Calcium Carbonate-Cholecalciferol) 500-600 Mg-Unit Tab 1 Tab PO BID Albuterol Neb (Albuterol Sulfate) 2.5 Mg/0.5 Ml Neb 2.5 Mg NEB Q4HR NEB PRN Note: The Albuterol Sulfate Inhalation Solution is concentrated and must be diluted. Read complete instructions carefully before using. Review of Systems Except as stated in HPI: all other systems reviewed are Neg Physical Exam Narrative GENERAL: Well-developed, well-nourished, comfortable, no apparent distress. SKIN: Focused skin assessment warm/dry. No rash. HEAD: Atraumatic. Normocephalic. EYES: Pupils equal, round, 2 mm, reactive to light. No scleral icterus. No injection or drainage. ENT: No nasal bleeding or discharge. Mucous membranes pink and moist. NECK: Trachea midline. No JVD. No nuchal rigidity. CARDIOVASCULAR: Regular rate and rhythm. Bilateral dorsalis pedis pulses are 1+ . RESPIRATORY: No accessory muscle use. Clear to auscultation. Breath sounds equal bilaterally. GASTROINTESTINAL: Abdomen soft, non-tender, nondistended. MUSCULOSKELETAL: No obvious deformities. No clubbing. No cyanosis. No edema. Varicose veins on bilateral lower extremities. Bilateral legs are warm with normal capillary refill. Right calf is mildly tender without edema. NEUROLOGICAL: Awake and alert. No obvious cranial nerve deficits. Motor grossly within normal limits. Normal speech. PSYCHIATRIC: Appropriate mood and affect; insight and judgment normal. Data Data Last Documented VS Vital Signs Date Time Temp Pulse Resp B/P (MAP) Pulse Ox O2 Delivery O2 Flow Rate FiO2 12/28/16 17:56 66 20 120/64 (82) 95 12/28/16 16:56 98.1 Orders Orders Basic Metabolic Panel (Bmp) (12/28/16 17:15) Complete Blood Count With Diff (12/28/16 17:15) Urinalysis - C+S If Indicated (12/28/16 17:15) Iv Access Insert/Monitor (12/28/16 17:15) Ecg Monitoring (12/28/16 17:15) Oximetry (12/28/16 17:15) Sodium Chloride 0.9% Flush (Ns Flush) (12/28/16 17:15) Electrocardiogram (12/28/16 17:15) Us Leg Venous Doppler (12/28/16 ) Metoclopramide Inj (Reglan Inj) (12/28/16 17:15) Metoclopramide (Reglan) (12/28/16 18:00) Labs Laboratory Tests Test 12/28/16 17:20 12/28/16 17:50 Urine Collection Type CLEAN CATCH Urine Color YELLOW Urine Turbidity CLEAR Urine pH 6.0 Urine Specific [place] 1.005 Urine Protein NEG mg/dL Urine Glucose (UA) NEG mg/dL Urine Ketones NEG mg/dL Urine Occult Blood NEG Urine Nitrite NEG Urine Bilirubin NEG Urine Leukocyte Esterase NEG Urine Squamous Epithelial Cells 0-5 /hpf Microscopic Urinalysis Comment CULT NOT INDICATED White Blood Count 4.1 TH/MM3 Red Blood Count 4.20 MIL/MM3 Hemoglobin 12.4 GM/DL Hematocrit 38.7 % Mean Corpuscular Volume 92.2 FL Mean Corpuscular Hemoglobin 29.4 PG Mean Corpuscular Hemoglobin Concent 31.9 % Red Cell Distribution Width 12.4 % Platelet Count 197 TH/MM3 Mean Platelet Volume 7.2 FL Neutrophils (%) (Auto) 53.3 % Lymphocytes (%) (Auto) 29.7 % Monocytes (%) (Auto) 12.0 % Eosinophils (%) (Auto) 3.6 % Basophils (%) (Auto) 1.4 % Neutrophils # (Auto) 2.2 TH/MM3 Lymphocytes # (Auto) 1.2 TH/MM3 Monocytes # (Auto) 0.5 TH/MM3 Eosinophils # (Auto) 0.1 TH/MM3 Basophils # (Auto) 0.1 TH/MM3 CBC Comment DIFF FINAL Differential Comment Blood Urea Nitrogen 12 MG/DL Creatinine 0.75 MG/DL Random Glucose 88 MG/DL Calcium Level 9.2 MG/DL Sodium Level 135 MEQ/L Potassium Level 4.2 MEQ/L Chloride Level 100 MEQ/L Carbon Dioxide Level 25.6 MEQ/L Anion Gap 9 MEQ/L Estimat Glomerular Filtration Rate 75 ML/MIN [facility] Medical Decision Making Medical Screen Exam Complete: Yes Emergency Medical Condition: Yes Interpretation(s) EKG: Sinus, rate 66, leftward axis, short LA interval, RBBB, no acute ischemic abnormality, Q waves in inferior leads, unchanged from prior. Differential Diagnosis DVT, muscular strain, metabolic abnormality, UTI, dysrhythmia, intracranial abnormality unlikely, migraine headache, cluster headache, tension headache, SAH /meningitis/encephalitis unlikely Narrative Course Vital signs show heart rate 61, blood pressure 111/58, pulse ox 97% on room air , oral temp of 98.1F. CBC is unremarkable. BMP is unremarkable. UA is not suggestive of UTI. Right lower extremity venous duplex ultrasound: CONCLUSION: No evidence of deep venous thrombosis within the right lower extremity. The patient and the patient's caregivers were made aware of all findings. She is resting comfortably and is overall very well-appearing. There are no focal neurologic deficits. No nuchal rigidity. She was given a dose of oral Reglan and states that her dizziness has improved as well as her headache. Her right leg pain is also improved while here in the emergency department. There are no significant findings to the right lower extremity/leg. At this point I believe she is stable for discharge home with outpatient follow-up with her primary care physician Dr. West this week. Patient and the patient's caregivers were informed on when to return to the emergency department. They verbalized understanding and agreement with plan. Diagnosis Primary Impression: Right leg pain Additional Impressions: Dizziness Headache Qualified Codes: R51 - Headache Referrals: Corby Mccormick MD 3 days Additional Instructions: Follow-up with your primary care physician this week. Stay hydrated with plenty of fluids. Return to the emergency department for worsening symptoms or any other concerns. Scripts Metoclopramide (Reglan) 10 Mg Tab 10 MG PO TIDAC, #10 TAB 0 Refills Prov: Dalton Nix MD 12/28/16 Disposition: 01 DISCHARGE HOME Condition: Stable Dalton Nix MD Dec 28, 2016 17:18
[2016-12-28 17:48] VITALS: O2SAT 96
[2016-12-28 17:48] LABS: BLOOD, URINE NEG (NEG); GLUCOSE,URINE NEG (NEG); KETONE, URINE NEG (NEG); NITRITE,URINE NEG (NEG)
[2016-12-28 17:51] LABS: METHOD OF COLLECTION CLEAN CATCH; URINE COLOR YELLOW (YELLW/STRAW)
[2016-12-28 17:53] LABS: COMMENT (UR) CULT NOT INDICATED; CULTURE IF INDICATED CULT NOT INDICATED; SQUAMOUS EPITHELIAL CELL URINE 0-5 /hpf (0-5)
[2016-12-28 17:56] VITALS: BP 120/64; PULSE 66; RESP 20; O2SAT 95
[2016-12-28 18:00] LABS: AUTOMATED NEUTROPHIL # 2.2 TH/MM3 (1.8-7.7); BASOPHIL # 0.1 TH/MM3 (0-0.2); BASOPHIL % 1.4 % (0.0-2.0); EOSINOPHIL # 0.1 TH/MM3 (0-0.4); EOSINOPHIL % 3.6 % (0.0-4.0); HEMATOCRIT 38.7 % (35.0-46.0); HEMO FLAGS DIFF FINAL; LYMPH % 29.7 % (9.0-44.0); LYMPHOCYTE # 1.2 TH/MM3 (1.0-4.8); MEAN CELL VOLUME 92.2 FL (80.0-100.0); MEAN CORPUSCULAR HEMOGLOBIN 29.4 PG (27.0-34.0); MEAN CORPUSCULAR HGB CONC 31.9 % (32.0-36.0); NEUT % 53.3 % (16.0-70.0); PLATELET COUNT 197 TH/MM3 (150-450); RED CELL DISTRIBUTION WIDTH 12.4 % (11.6-17.2); WHITE BLOOD COUNT 4.1 TH/MM3 (4.0-11.0)
[2016-12-28] MEDS ORDERED: METOCLOPRAMIDE HCL 10 MG TAB PO ONE (18:00)
[2016-12-28 18:11] LABS: POTASSIUM 4.2 MEQ/L (3.5-5.1)
[2016-12-28 18:15] LABS: BICARBONATE 25.6 MEQ/L (21.0-32.0)
--- NOTE | 2016-12-28 18:34 | RADRPT ---
EXAM DATE/TIME: 12/28/2016 18:11 [facility] COMPARISON: No previous studies available for comparison. INDICATIONS : Right leg swelling. MEDICAL HISTORY : Stroke. Seizures. Myocardial infarction. Neck pain. Dizziness. Syncope. Hypercholestrolemia. Pancr eatitis. Breast cancer. Arthritis. Osteoporosis. SURGICAL HISTORY : Tonsillectomy. Cholecystectomy. Hysterectomy. Bilateral cataract surgery. Adenoidectomy. Cardiac cat heterization. Right mastectomy. Joint replacement. Spinal surgery. ENCOUNTER: Subsequent ACUITY: 1 day PAIN SCORE: 3/10 LOCATION: Right leg. TECHNIQUE: Venous ultrasound of the leg was performed from the inguinal ligament to the proximal calf. Real-david e, color Doppler and spectral tracing, compression and augmentation techniques were used. FINDINGS: There is normal compressibility of the deep venous system from the inguinal region to the proximal ca lf. No echogenic clot is seen in the lumen of the common femoral, femoral, popliteal, and posterior tibial veins. There is a normal response of the venous system to proximal and distal augmentation an d respiration. CONCLUSION: No evidence of deep venous thrombosis within the right lower extremity. Kavin Licona MD on December 28, 2016 at 18:30 Board Certified Radiologist. This report was verified electronically.
[2016-12-28] MEDS ORDERED: REGL10TA5 PO (18:56)
[2016-12-28 19:01] VITALS: BP 120/64
--- NOTE | 2016-12-28 22:19 | EKG ---
Date Performed: 12/28/2016 Time Performed: 17:40:29 PTAGE: 76 years EKG: Sinus rhythm WITH FIRST DEGREE AV BLOCK RIGHT BUNDLE BRANCH BLOCK INFERIOR MYOCARDIAL INFARCTION ABNORMAL ECG PREVIOUS TRACING : 09/07/2016 16.28 Compared to prior tracing no significant change DOCTOR: Rosales Gonzalez Interpretating Date/Time 12/28/2016 22:17:22
== END 2016-12-28 19:15 | disposition home or self-care (01) ==
LOC: PHED 16:46
DX: M79.604 Pain in right leg (principal); R42 Dizziness and giddiness; R51 Headache
CPT/HCPCS: 80048; 81001; 85025; 93005; 93971; 99285

== ENCOUNTER 2017-01-02 04:28 | Emergency (ER) | payer MEDICARE ==
[~2017-01-02] VITALS: Ht 157.5 cm; Wt 57.0 kg
[~2017-01-02 04:28] MED LIST changes: +ACYC5OIN4 TOPICAL; +ASPI81CH CHEW; +BUTATAB6 PO; -CITA10TA4 PO; -Cefuroxime PO; +FLAX10002; -FLUT1SPR22; +FLUT50SP EACH NARE; -IPRA17I INH; -LIDO1PAD52 TOPICAL; -MIRA33504 PO; +OMEP20TA PO; -PRED50 PO; -PRIL20CA9 PO; -PROBCAP11 PO; -RANI150C PO; +REGL10TA5 PO
--- NOTE | 2017-01-02 04:40 | PD ---
HPI Chief Complaint: lightheadedness Time Seen by Provider: 04:32 Travel History International Travel<30 days: No Contact w/Intl Traveler<30days: No Traveled to known affect area: No History of Present Illness HPI This patient got up to go to the bathroom in the middle of the night and became lightheaded and dizzy. She lost balance and fell. She denies injury from fall. She has no acute pain. Was hypotensive on scene when paramedics arrived. She was receiving IV fluid in route and arrives with a systolic blood pressure 100. Severity of symptoms is moderate. No alleviating factors. She denies headache or chest pain. No palpitations. Duration 1 hour PFSH Past Medical History Hx Anticoagulant Therapy: No Anemia: Yes Arthritis: Yes (OA) Asthma: No Blood Disorders: No Anxiety: Yes Depression: Yes Heart Rhythm Problems: No Cancer: Yes (right BREAST) Cardiac Catheterization: Yes Cardiovascular Problems: Yes (MD) High Cholesterol: Yes Chemotherapy: No Chest Pain: Yes Congestive Heart Failure: Yes COPD: No Cerebrovascular Accident: Yes Diabetes: No Diminished Hearing: Yes Endocrine: Yes (CHRONIC PANCREATITIS) Gastrointestinal Disorders: Yes (CHR. CONSTIPATION, GERD- ) GERD: Yes Genitourinary: Yes Headaches: Yes Hiatal Hernia: Yes Hypertension: No Immune Disorder: No Implanted Vascular Access Dvce: Yes (REMOVED) Kidney Stones: No Musculoskeletal: Yes Neurologic: Yes Psychiatric: Yes Reproductive: No Respiratory: No Immunizations Current: Yes (HEPATITIS AND SHINGLES VACC) Myocardial Infarction: Yes Pancreatitis: Yes (chronic RT insufficiency) Radiation Therapy: No Seizures: Yes (long time ago, 25 or 30 years ago) Sleep Apnea: Yes Ulcer: No Menopausal: Yes : 1 Para: 1 Past Surgical History Abdominal Surgery: Yes (PARTIAL GASTRECTOMY, EXP LAP) AICD: No Appendectomy: Yes Arteriovenous Shunt: No Body Medical Devices: infusor PORT - REMOVED DUE TO INFECTION Cholecystectomy: Yes Ear Surgery: No Endocrine Surgery: No Eye Surgery: Yes (FAIZAN. CATARACT EXTRACT.) Gynecologic Surgery: Yes (OVARIAN SURGERY (PARTIAL OOPHERECTOMY), MASTECTOMY) Hysterectomy: Yes (PARTIAL OOPHERECTOMY) Insulin Pump: No Joint Replacement: Yes (pins in ankle due to bad breaks, left leg dante, broke hip) Mastectomy: Yes (RIGHT BREAST) Neurologic Surgery: Yes ( ) Oral Surgery: Yes (T & A) Tonsillectomy: Yes Social History Alcohol Use: No Tobacco Use: No Substance Use: No Allergies-Medications (Allergen,Severity, Reaction): Coded Allergies: Sulfa (Sulfonamide Antibiotics) (Unverified Allergy, Severe, Rash, 01/02/17 ) aspirin (Unverified Adverse Reaction, Intermediate, Nausea/Vomiting, ) PATIENT STATES SHE GETS AN UPSET STOMACH BUT TOLERATES 81MG ASPIRIN DAILY. 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 Aspirin 81 Mg Chew 81 Mg CHEW DAILY Acyclovir Topical (Acyclovir) 5% Oint 1 Applic TOPICAL QID Risperidone 1 Mg Tab 1 Mg PO HS Mobic (Meloxicam) 15 Mg Tab 15 Mg PO DAILY Lyrica (Pregabalin) 50 Mg Cap 50 Mg PO BID Lorazepam 1 Mg Tab 1 Mg PO HS Duloxetine DR (Duloxetine HCl) 60 Mg Capdr 60 Mg PO DAILY Calcium 500 +D3 (Calcium Carbonate-Cholecalciferol) 500-600 Mg-Unit Tab 1 Tab PO BID Albuterol Neb (Albuterol Sulfate) 2.5 Mg/0.5 Ml Neb 2.5 Mg NEB Q4HR NEB PRN Note: The Albuterol Sulfate Inhalation Solution is concentrated and must be diluted. Read complete instructions carefully before using. Review of Systems General / Constitutional: No: Fever Eyes: No: Visual changes HENT: Positive: Lightheadedness, No: Headaches Cardiovascular: No: Chest Pain or Discomfort Respiratory: No: Shortness of Breath Gastrointestinal: No: Abdominal Pain Genitourinary: No: Dysuria Musculoskeletal: Positive: Weakness, No: Pain Skin: No Rash Neurologic: Positive: Weakness, Dizziness Psychiatric: No: Depression Endocrine: No: Polydipsia Hematologic/Lymphatic: No: Easy Bruising Physical Exam Narrative GENERAL: Well-nourished, well-developed patient in no apparent distress. SKIN: Focused skin assessment reveals no rash and nodules. Skin is Warm and dry. HEAD: Atraumatic. Normocephalic. EYES: Pupils equal and round. No scleral icterus. No injection or drainage. ENT: No nasal bleeding or discharge. Mucous membranes pink and moist. NECK: Trachea midline. No JVD. CARDIOVASCULAR: Regular rate and rhythm. No murmur appreciated. RESPIRATORY: No accessory muscle use. Clear to auscultation. Breath sounds equal bilaterally. GASTROINTESTINAL: Abdomen soft, non-tender, nondistended. Hepatic and splenic margins not palpable. MUSCULOSKELETAL: No obvious deformities. No clubbing. No cyanosis. No edema. NEUROLOGICAL: Awake and alert. No obvious cranial nerve deficits. Motor grossly within normal limits. Normal speech. PSYCHIATRIC: Appropriate mood and affect; insight and judgment normal. Data Data Last Documented VS Vital Signs Date Time Temp Pulse Resp B/P (MAP) Pulse Ox O2 Delivery O2 Flow Rate FiO2 01/02/17 05:58 59 129/59 (82) 38 135/62 (86) 87 91/57 (68) 01/02/17 04:46 Room Air 01/02/17 04:42 97.4 16 98 Orders Orders Sodium Chlor 0.9% 1000 Ml Inj (Ns 1000 M (01/02/17 04:45) Electrocardiogram (01/02/17 ) Complete Blood Count With Diff (01/02/17 04:34) Basic Metabolic Panel (Bmp) (01/02/17 04:34) Signalman / Telemetry [id number] (01/02/17 04:34) Orthostatic Vital Signs (01/02/17 04:34) Sodium Chlor 0.9% 1000 Ml Inj (Ns 1000 M (01/02/17 06:15) Labs Laboratory Tests Test 01/02/17 05:55 White Blood Count 6.6 TH/MM3 Red Blood Count 4.22 MIL/MM3 Hemoglobin 13.0 GM/DL Hematocrit 39.8 % Mean Corpuscular Volume 94.2 FL Mean Corpuscular Hemoglobin 30.9 PG Mean Corpuscular Hemoglobin Concent 32.8 % Red Cell Distribution Width 13.4 % Platelet Count 195 TH/MM3 Mean Platelet Volume 7.7 FL Neutrophils (%) (Auto) 78.0 % Lymphocytes (%) (Auto) 11.7 % Monocytes (%) (Auto) 8.4 % Eosinophils (%) (Auto) 1.5 % Basophils (%) (Auto) 0.4 % Neutrophils # (Auto) 5.2 TH/MM3 Lymphocytes # (Auto) 0.8 TH/MM3 Monocytes # (Auto) 0.6 TH/MM3 Eosinophils # (Auto) 0.1 TH/MM3 Basophils # (Auto) 0.0 TH/MM3 CBC Comment DIFF FINAL Differential Comment Blood Urea Nitrogen 18 MG/DL Creatinine 0.95 MG/DL Random Glucose 86 MG/DL Calcium Level 8.8 MG/DL Sodium Level 142 MEQ/L Potassium Level 3.9 MEQ/L Chloride Level 107 MEQ/L Carbon Dioxide Level 25.0 MEQ/L Anion Gap 10 MEQ/L Estimat Glomerular Filtration Rate 57 ML/MIN MDM Medical Decision Making Medical Screen Exam Complete: Yes Emergency Medical Condition: Yes Medical Record Reviewed: Yes Differential Diagnosis Vasovagal episode, orthostatic hypotension, cardiac arrhythmia Narrative Course I have reviewed the patient's electronic medical record. Patient was seen here 4 days ago and I reviewed her workup IV placed I gave her 1 L normal saline IV CBC is normal Metabolic profile is normal Orthostatic vitals show normal blood pressure flat and sitting but he stands her blood pressure dropped Extended cardiac monitoring shows sinus rhythm without ectopy I reviewed her EKG which shows sinus bradycardia at 58 and first-degree AV block Patient has had orthostatic dizziness problems for at least 2 full years. She does fall frequently. This is a chronic problem she has both a walker and wheelchair at home but typically doesn't use the wheelchair. She is well-hydrated. I've given her to additional liters and she's had a total of 3 L IV normal saline She is going to use her wheelchair for the next few days until she can follow- up her primary physician who according to them as well aware of the problem and seen her multiple times for this. I don't think she needs a hospital stay for this chronic problem. Diagnosis Primary Impression: Postural hypotension Additional Impression: Pre-syncope Additional Instructions: The patient was advised to follow up with their physician and return if they worsen. Use wheelchair Med/Other Pt SpecificInfo: Other Disposition: 01 DISCHARGE HOME Condition: Stable Salazar Kendall MD Jan 02, 2017 04:40
[2017-01-02 04:42] VITALS: BP 100/57; PULSE 61; RESP 16; TEMP 97.4; O2SAT 98
[2017-01-02] MEDS ORDERED: SODIUM CHLOR 0.9% 1000 ML INJ 1,000 ML IV ONE ×2 (04:45→06:15)
[2017-01-02 05:58] VITALS: BP_SYST 129; BP_SYST 135; BP_SYST 91; BP_DIAS 57; BP_DIAS 59; BP_DIAS 62
[2017-01-02 06:04] LABS: AUTOMATED NEUTROPHIL # 5.2 TH/MM3 (1.8-7.7); BASOPHIL % 0.4 % (0.0-2.0); EOSINOPHIL # 0.1 TH/MM3 (0-0.4); EOSINOPHIL % 1.5 % (0.0-4.0); HEMATOCRIT 39.8 % (35.0-46.0); HEMO FLAGS DIFF FINAL; LYMPH % 11.7 % (9.0-44.0); LYMPHOCYTE # 0.8 TH/MM3 (1.0-4.8); MEAN CELL VOLUME 94.2 FL (80.0-100.0); MEAN CORPUSCULAR HEMOGLOBIN 30.9 PG (27.0-34.0); MEAN CORPUSCULAR HGB CONC 32.8 % (32.0-36.0); MONO % 8.4 % (0.0-8.0); PLATELET COUNT 195 TH/MM3 (150-450); RED BLOOD COUNT 4.22 MIL/MM3 (4.00-5.30); RED CELL DISTRIBUTION WIDTH 13.4 % (11.6-17.2); WHITE BLOOD COUNT 6.6 TH/MM3 (4.0-11.0)
[2017-01-02 06:46] LABS: POTASSIUM 3.9 MEQ/L (3.5-5.1)
[2017-01-02 07:15] VITALS: BP 134/57; PULSE 72; RESP 18; O2SAT 100
--- NOTE | 2017-01-02 17:44 | EKG ---
Date Performed: 01/02/2017 Time Performed: 04:59:59 PTAGE: 76 years EKG: SINUS BRADYCARDIA WITH FIRST DEGREE AV BLOCK RIGHT BUNDLE BRANCH BLOCK INFERIOR MYOCARDIAL INFARCTION ABNORMAL ECG INTERPRETATION BASED ON A DEFAULT AGE OF 40 YEARS Compared to prior tracing n o significant change PREVIOUS TRACING : 12/28/2016 17.40 DOCTOR: Mikel Ortez Interpretating Date/Time 01/02/2017 17:42:04
== END 2017-01-02 07:48 | disposition home or self-care (01) ==
LOC: NEPC 04:28
DX: I95.1 Orthostatic hypotension (principal); Z91.81 History of falling; I45.10 Unspecified right bundle-branch block; E78.00 Pure hypercholesterolemia, unspecified; M19.90 Unspecified osteoarthritis, unspecified site; K21.9 Gastro-esophageal reflux disease without esophagitis; D64.9 Anemia, unspecified; I25.2 Old myocardial infarction
CPT/HCPCS: 80048; 85025; 93005; 96360; 99284; J7030

== ENCOUNTER 2017-08-03 11:56 | Emergency (ER) | payer OTHER, MEDICARE ==
[~2017-08-03] VITALS: Ht 162.6 cm; Wt 58.0 kg
[~2017-08-03 11:56] MED LIST changes: +ASPI-516 CHEW; -ASPI81CH CHEW; -OMEP20TA PO; +OMEP20TA93 PO
[2017-08-03 12:13] VITALS: BP 99/55; PULSE 76; RESP 19; TEMP 98.1; O2SAT 95
[2017-08-03] MEDS ORDERED: ACETAMINOPHEN/HYDROcodone 325 MG/5 MG TAB PO ONE (13:45)
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
== END 2017-08-03 15:48 | disposition home or self-care (01) ==
LOC: NEPD 11:56
DX: S39.012A Strain of muscle, fascia and tendon of lower back, initial encounter (principal); S70.01XA Contusion of right hip, initial encounter; V03.90XA Pedestrian on foot injured in collision with car, pick-up truck or van, unspecified whether traffic or nontraffic accident, initial encounter; Y93.01 Activity, walking, marching and hiking; F41.9 Anxiety disorder, unspecified; F32.9 Major depressive disorder, single episode, unspecified; E78.00 Pure hypercholesterolemia, unspecified; I50.9 Heart failure, unspecified; K86.1 Other chronic pancreatitis
CPT/HCPCS: 72072; 72100; 72170; 99283